=== PATIENT | female | born 1960 | race Caucasian/White ===

== ENCOUNTER 2020-06-29 12:57 | Emergency (ER) | payer OTHER ==
[~2020-06-29] VITALS: Ht 152.4 cm; Wt 53.5 kg
[2020-06-29 14:18] LABS: ABSOLUTE NEUTROPHILS 4.5 thou/uL (1.4-8.2); BASOPHILS 0.9 % (0.0-2.0); EOSINOPHILS 1.8 % (0.0-3.0); HEMATOCRIT 36.7 % (37.0-47.0); HEMOGLOBIN 12.3 gm/dL (12.0-15.0); MCHC 33.4 g/dL (28.0-37.0); MCV 92.7 fL (80.0-100.0); MONOCYTES 12.3 % (1.0-8.0); PLATELET COUNT 347 thou/uL (150-400); RBC 3.96 mil/uL (4.20-5.00); RDW 13.2 % (10.5-14.5); WBC 7.8 thou/uL (4.0-11.0)
[2020-06-29 14:23] LABS: ANION GAP 10 mmol/L (7-16); BUN 17 mg/dL (7-18); CALCIUM 9.8 mg/dL (8.5-10.1); CHLORIDE 103 mmol/L (98-107); CO2 30 mmol/L (21-32); CREATININE 0.7 mg/dL (0.6-1.0); GLUCOSE 119 mg/dL (74-106); POTASSIUM 4.1 mmol/L (3.5-5.1); SODIUM 143 mmol/L (136-145)
[2020-06-29 14:34] LABS: ALBUMIN 4.3 g/dL (3.4-5.0); DIRECT BILIRUBIN < 0.1 mg/dL (<0.1-0.2); SGOT 59 U/L (15-37); SGPT 44 U/L (30-65); TOTAL BILIRUBIN 0.4 mg/dL (0.2-1.0); TOTAL PROTEIN 7.7 g/dL (6.4-8.2); TROPONIN-I <0.06 ng/mL (<0.06)
[2020-06-29 14:48] LABS: APTT 23.9 Seconds (24.5-32.8); PROTIME 10.3 Seconds (9.3-11.4)
[2020-06-29] MEDS ORDERED: METOPROLOL TART25 MG PO (16:15)
[2020-06-29] MEDS ORDERED: CARDIZEM120 MG PO (16:22)
[2020-06-29 17:05] VITALS: BP 101/65
--- NOTE | 2020-06-30 10:26 | EKG ---
[address] [address] ELECTROCARDIOGRAM REPORT Name: ES MILLS Room #: DEP Roosevelt#: [id number] Admission: 06/29/20 Attend Phys: Discharge: 06/29/20 Date of : 64 Report #: [id number] [facility] ED Test Date: 2020-06-29 Test Time: 13:26:32 Pat Name: ES MILLS Department: Room: Gender: F Dust Sampler: : 1960 Requested By: Luz Goel Order Number: [id number] MD: Srikanth Almaraz Measurements Intervals [place] Rate: 116 P: [place]: QRS: 52 QRSD: 85 T: 41 QT: 322 QTc: 448 Interpretive Statements Atrial fibrillation No previous ECG available for comparison Electronically Signed On 06-30-2020 10:25:48 DRILLING SUPERVISOR by Srikanth Almaraz [email or web address] <ELECTRONICALLY SIGNED> By: Srikanth Almaraz MD 06/30/20 1025 1326 1326 Srikanth Almaraz MD /EPI
--- NOTE | 2020-07-03 07:01 | EKG ---
[place] [address] [address] [facility] [place] [address] ELECTROCARDIOGRAM REPORT Name: ES MILLS Room #: DEP ELIANA Albert#: [id number] Admission: 06/29/20 Attend Phys: Discharge: 06/29/20 Date of : 64 Report #: [id number] [facility] ED Test Date: 2020-06-29 Test Time: 13:09:20 Pat Name: ES MILLS Department: Room: Gender: F Parking Control Officer: eliana : 1960 Requested By: Luz Goel Order Number: [id number] MD: River Goode Measurements Intervals [place] Rate: 185 P: 0 TN: 43 QRS: 45 QRSD: 80 T: 42 QT: 264 QTc: 464 Interpretive Statements Supraventricular tachycardia ST depression, probably rate related No previous ECG available for comparison Electronically Signed On 07-03-2020 7:01:24 RETAIL FIELD SUPERVISOR by River Goode [email or web address] <ELECTRONICALLY SIGNED> By: River Goode MD, [facility] 07/03/20 0701 1309 1309 River Goode MD, FACC /EPI
== END 2020-06-29 16:59 | disposition left against medical advice (07) ==
LOC: ER 12:57
PROVIDERS: Emergency Medicine
DX: I47.1 Supraventricular tachycardia (principal); I48.91 Unspecified atrial fibrillation